=== PATIENT | male | born 1995 | race Caucasian/White ===

== ENCOUNTER 2017-11-09 20:47 | Emergency (ER) | payer BC, OTHER ==
--- NOTE | 2017-11-09 20:55 | EDM.PDOC ---
ED HPI GENERAL MEDICAL PROBLEM - General Chief Complaint: General Stated Complaint: DIZZY Time Seen by Provider: 11/09/17 20:55 Source of Information: Reports: Patient - History of Present Illness INITIAL COMMENTS - FREE TEXT/NARRATIVE: HISTORY AND PHYSICAL: History of present illness: [Patient presents with dizziness, he was driving on his way to [place] and developed dizziness he has had sinus pain and pressure for a week increasing in severity he has a history of migraine and is complaining of headache and mild nausea and light sensitivity now No fever chills sweats no chest pain shortness of breath or palpitations no bowel or urine symptoms ] Review of systems: As per history of present illness and below otherwise all systems reviewed and negative. Past medical history: As per history of present illness and as reviewed below otherwise noncontributory. Surgical history: As per history of present illness and as reviewed below otherwise noncontributory. Social history: No reported history of drug or alcohol abuse. Family history: As per history of present illness and as reviewed below otherwise noncontributory. Physical exam: HEENT: Atraumatic, normocephalic, pupils reactive, negative for conjunctival pallor or scleral icterus, mucous membranes moist, throat clear, neck supple, nontender, trachea midline supraorbital sinus tenderness along with maxillary sinus tenderness right greater than left Lungs: Clear to auscultation, breath sounds equal bilaterally, chest nontender. Heart: S1S2, regular, negative for clicks, rubs, or JVD. Abdomen: Soft, nondistended, nontender. Negative for masses or hepatosplenomegaly. Negative for costovertebral tenderness. Pelvis: Stable nontender. Genitourinary: Deferred. Rectal: Deferred. Extremities: Atraumatic, negative for cords or calf pain. Neurovascular unremarkable. Neuro: Awake, alert, oriented. Cranial nerves II through XII unremarkable. Cerebellum unremarkable. Motor and sensory unremarkable throughout. Exam nonfocal. Diagnostics: [CBC CMP UA ]EKG Therapeutics: [Amoxicillin 875 by mouth twice a day #20 no refill [id number] symptomatic therapies discussed] Impression: [Acute sinusitis Dizziness ] improved Hx migraine Definitive disposition and diagnosis as appropriate pending reevaluation and review of above. Head Pain Score (Numeric/FACES): 5 - Related Data Allergies Allergy/AdvReac Type Severity Reaction Status Date / Time Bleach (Sodium Hypochlorite) Allergy Cannot Verified 04/28/17 18:56 Remember venom-honey bee Allergy Anaphylactic Verified 04/28/17 18:56 [bee venom (honey bee)] Shock Home Meds: Home Meds . [No Known Home Meds] 11/09/17 [History] Past Medical History - Past Health History Medical/Surgical History: Denies Medical/Surgical History HEENT History: Reports: None Cardiovascular History: Reports: Other (See Below) Other Cardiovascular History: fluid around heart Respiratory History: Reports: Other (See Below) Other Respiratory History: pleurisy hx Gastrointestinal History: Reports: GERD Genitourinary History: Reports: None Musculoskeletal History: Reports: Fracture Other Musculoskeletal History: right knee pain, chronic Neurological History: Reports: Concussion, Seizure Psychiatric History: Reports: Anxiety, Depression Endocrine/Metabolic History: Reports: Other (See Below) Other Endocrine/Metabolic History: alopecia Hematologic History: Reports: None Immunologic History: Reports: None Oncologic (Cancer) History: Reports: None Dermatologic History: Reports: Other (See Below) Other Dermatologic History: alopecia - Infectious Disease History Infectious Disease History: Reports: None - Past Surgical History Head Surgeries/Procedures: Reports: None HEENT Surgical History: Reports: Tonsillectomy GI Surgical History: Reports: None Male Surgical History: Reports: None Neurological Surgical History: Reports: None Musculoskeletal Surgical History: Reports: None Social & Family History - Family History Family Medical History: Noncontributory - Tobacco Use Smoking Status *Q: Current Every Day Smoker Years of Tobacco use: 7 Packs/Tins Daily: 1 Used Tobacco, but Quit: No Month/Year Tobacco Last Used: february Second Hand Smoke Exposure: Yes - Caffeine Use Caffeine Use: Reports: Soda Caffeine Use Comment: states occassional usage - Alcohol Use Days Per Week of Alcohol Use: 2 Number of Drinks Per Day: 5 Total Drinks Per Week: 10 - Recreational Drug Use Recreational Drug Use: No Recreational Drug Type: Reports: Marijuana/Hashish - Living Situation & Occupation Living situation: Reports: Single, with Family Occupation: Student ED ROS GENERAL - Review of Systems Review Of Systems: ROS reveals no pertinent complaints other than HPI. ED EXAM, GENERAL - Physical Exam Exam: See Below Course - Vital Signs Last Recorded V/S: Last Vital Signs Temp 98.3 F 11/09/17 20:47 Pulse 68 11/09/17 20:47 Resp 18 11/09/17 20:47 BP 125/70 11/09/17 20:47 Pulse Ox 95 11/09/17 20:47 - Orders/Labs/Meds Orders: Active Orders 24 hr Category Date Time Status EKG Documentation Completion [RC] STAT Care 11/09/17 21:03 Active COMPREHENSIVE METABOLIC PN,CMP [CHEM] Stat Lab 11/09/17 21:09 Received TROPONIN I [CHEM] Stat Lab 11/09/17 21:09 Received UA W/MICROSCOPIC [URIN] Stat Lab 11/09/17 21:01 Ordered Sodium Chloride 0.9% [Normal Saline] 1,000 ml Med 11/09/17 21:03 Active IV STAT Medication Orders Sodium Chloride (Normal Saline) 1,000 mls @ 999 mls/hr IV STAT ONE Stop: 11/09/17 22:03 Last Admin: 11/09/17 21:16 Dose: Not Given Labs: Laboratory Tests 11/09/17 Range/Units 21:09 WBC 7.52 (4.0-11.0) K/uL RBC 5.15 (4.50-5.90) M/uL Hgb 15.3 (13.0-17.0) g/dL Hct 44.8 (38.0-50.0) % MCV 87.0 (80.0-98.0) fL MCH 29.7 (27.0-32.0) pg MCHC 34.2 (31.0-37.0) g/dL RDW Std Deviation 41.7 (28.0-62.0) fl RDW Coeff of Cammy 13 (11.0-15.0) % Plt Count 215 (150-400) K/uL MPV 9.60 (7.40-12.00) fL Neut % (Auto) 50.9 (48.0-80.0) % Lymph % (Auto) 38.7 (16.0-40.0) % [place] % (Auto) 7.6 (0.0-15.0) % Eos % (Auto) 2.5 (0.0-7.0) % Baso % (Auto) 0.3 (0.0-1.5) % Neut # (Auto) 3.8 (1.4-5.7) K/uL Lymph # (Auto) 2.9 H (0.6-2.4) K/uL [place] # (Auto) 0.6 (0.0-0.8) K/uL Eos # (Auto) 0.2 (0.0-0.7) K/uL Baso # (Auto) 0.0 (0.0-0.1) K/uL Nucleated RBC % 0.0 /100WBC Nucleated RBCs # 0 K/uL Meds: Medications Generic Name Dose Route Start Last Admin Trade Name Freq PRN Reason Stop Dose Admin Sodium Chloride 1,000 mls @ 999 mls/hr 11/09/17 21:03 11/09/17 21:16 Normal Saline IV 11/09/17 22:03 Not Given STAT ONE Discontinued Medications Generic Name Dose Route Start Last Admin Trade Name Freq PRN Reason Stop Dose Admin Ondansetron HCl 8 mg 11/09/17 21:03 11/09/17 21:16 Zofran IVPUSH 11/09/17 21:04 Not Given ONETIME ONE Ondansetron HCl 4 mg 11/09/17 21:16 11/09/17 21:22 Zofran Odt PO 11/09/17 21:17 4 mg ONETIME ONE Administration Departure - Departure Time of Disposition: 21:26 Disposition: Home, Self-Care 01 Condition: Good Clinical Impression: Sinusitis - Discharge Information Referrals: PCP,None [Primary Care Provider] - Forms: ED Department Discharge Additional Instructions: The following information is given to patients seen in the emergency department who are being discharged to home. This information is to outline your options for follow-up care. We provide all patients seen in our emergency department with a follow-up referral. The need for follow-up, as well as the timing and circumstances, are variable depending upon the specifics of your emergency department visit. If you don't have a primary care physician on staff, we will provide you with a referral. We always advise you to contact your personal physician following an emergency department visit to inform them of the circumstance of the visit and for follow-up with them and/or the need for any referrals to a consulting specialist. The emergency department will also refer you to a specialist when appropriate. This referral assures that you have the opportunity for follow-up care with a specialist. All of these measure are taken in an effort to provide you with optimal care, which includes your follow-up. Under all circumstances we always encourage you to contact your private physician who remains a resource for coordinating your care. When calling for follow-up care, please make the office aware that this follow-up is from your recent emergency room visit. If for any reason you are refused follow-up, please contact the [facility] emergency department at and asked to speak to the emergency department charge nurse. - My Orders Last 24 Hours: My Active Orders 11/09/17 21:01 UA W/MICROSCOPIC [URIN] Stat 11/09/17 21:03 EKG Documentation Completion [RC] STAT Sodium Chloride 0.9% [Normal Saline] 1,000 ml IV STAT 11/09/17 21:09 COMPREHENSIVE METABOLIC PN,CMP [CHEM] Stat TROPONIN I [CHEM] Stat - Assessment/Plan Last 24 Hours: My Active Orders 11/09/17 21:01 UA W/MICROSCOPIC [URIN] Stat 11/09/17 21:03 EKG Documentation Completion [RC] STAT Sodium Chloride 0.9% [Normal Saline] 1,000 ml IV STAT 11/09/17 21:09 COMPREHENSIVE METABOLIC PN,CMP [CHEM] Stat TROPONIN I [CHEM] Stat
[2017-11-09] MEDS ORDERED: Sodium Chloride 0.9% 1,000 ML IV ONE (21:03)
[2017-11-09] MEDS ORDERED: Ondansetron 4 MG/2 ML SDV IVPUSH ONE (21:03)
[2017-11-09] MEDS ORDERED: Ondansetron 4 MG Tab.DIS PO ONE (21:16)
[2017-11-09 21:39] LABS: CHLORIDE,CL 109 mmol/L (98-107); SODIUM,NA 142 mmol/L (136-148)
[2017-11-09 22:17] VITALS: BP 110/65
== END 2017-11-09 22:18 | disposition home or self-care (01) ==
LOC: MW.ED 20:47
DX: J01.90 Acute sinusitis, unspecified (principal); G43.909 Migraine, unspecified, not intractable, without status migrainosus; K21.9 Gastro-esophageal reflux disease without esophagitis; F41.9 Anxiety disorder, unspecified; F32.9 Major depressive disorder, single episode, unspecified; F17.210 Nicotine dependence, cigarettes, uncomplicated; Z91.030 Bee allergy status
CPT/HCPCS: 36415; 80053; 81001; 84484; 85025; 93005; 99284; A9270